=== PATIENT | male | born 1980 | race Caucasian/White ===

== ENCOUNTER 2020-02-10 19:12 | Emergency (ER) | payer MEDICAID, SELFPAY ==
[2020-02-10 19:25] VITALS: BP 119/66; PULSE 88; RESP 16; TEMP 37.6; O2SAT 98; BMI 31.3
--- NOTE | 2020-02-10 19:32 | ED.CHESTPAIN ---
HPI - Chest Pain General Chief Complaint: General Medical Stated Complaint: CHEST PAIN Time Seen by Provider: 02/10/20 19:29 Source: patient Mode of arrival: ambulatory Limitations: no limitations History of Present Illness HPI narrative: Patient no significant past medical history smokes pot noticed pain in the right leg for some time without significant swelling, also for last few days been coughing and today after coughing noticed pain on the right side , cough is mostly dry had mucopurulent phlegm today with blood streaks no fever no shortness of breath no exposure to COVID increase pain in the right lung when he takes a deep breath no history of blood clots in the past patient was seated on toilet seat for hours when he smokes pot no recent travel MD complaint: chest discomfort Prior episodes: No Onset: during rest Quality: sharp Relieving factors: nothing Exacerbating factors: inspiration Related Data Previous Rx's Medication Instructions Recorded apixaban [Eliquis DVT-PE Treat 30D 5 mg PO PER PKG DIR #74 ea 02/10/20 Start] codeine-guaifenesin 10 ml PO Q4-6H PRN #237 ml 02/10/20 Allergies Allergy/AdvReac Type Severity Reaction Status Date / Time No Known Allergies Allergy Verified 02/10/20 19:32 Review of Systems Review of Systems: REVIEW OF SYSTEMS: Pertinent positives and negatives are stated above in the history. GEN: no fevers, chills, fatigue HEENT: no nasal congestion, sore throat, ear pain NEURO: no headache, dizziness, focal weakness PULM: no cough, shortness of breath CV: no , palpitations, LE edema ABD: no abdominal pain, nausea, vomiting, diarrhea : no dysuria, urgency, frequency SKIN: no rash ROS otherwise negative x 10 PMFSH Past Medical History Medical History No active medical problems Social History Social History Alcohol intake: never Smoking Status: Never smoker Smoked in Last 30 Days: No Use of substances other than those prescribed or required for medical reasons: Yes Substance Use Type: Marijuana Substance Use Frequency: Chronic Longstanding Last Used Substance: Just Prior to Admission Any prior treatment program specific to substance use: No Advance Directives: No Advance Directives Information Provided: Yes Physical Exam Vital Signs: Vital Signs: Last Vital Signs Temp 99.4 F 02/10/20 20:00 Pulse 73 02/10/20 20:00 Resp 18 02/10/20 20:00 BP 132/69 02/10/20 20:00 Pulse Ox 97 02/10/20 21:50 Body Mass Index 31.3 Appearance: Alert. Oriented X3. No acute distress. Eyes: Pupils equal, round and reactive to light. ENT: Pharynx normal. Neck: Normal inspection. Neck supple. CVS: Normal heart rate and rhythm. Pulses normal. Respiratory: No respiratory distress. Breath sounds normal. Abdomen: Soft and nontender. Skin: Skin warm and dry. Normal skin color. Normal skin turgor. Extremities: No lower extremity edema. Good range of movement , superficial tenderness right calf area Shanti sign is slightly positive on right dorsiflexion Neuro: Oriented X 3. No motor deficit. No sensory deficit. MDM - Chest Pain MDM Narrative Medical decision making narrative: Patient with right calf pain Doppler showed right gastrocnemius vein thrombosis also CT chest done which showed right-sided pulmonary emboli without any strain or saddle emboli etiology is not clear but likely patient sit on the toilet seat and chair for long hours playing video games on cell phone likely the cause for blood clot in the right leg. Patient denied usage of any cocaine. Patient denies any family history of blood clots. Patient saturating 97% on ambulation at room air will treat him with Delmi as outpatient for PE and DVT treatment advised to follow-up with chemical treatment operator Medical Records Data Attestation: I reviewed the patient's medical records. Lab Data Attestation: I reviewed the patient's lab results. Result diagrams: 02/10/20 19:45 02/10/20 19:45 Labs: Lab Results 02/10/20 02/10/20 02/10/20 Range/Units 19:45 19:45 19:45 WBC 10.3 (4.8-10.8) X10*3/uL RBC 4.49 L (4.60-5.80) X10*6/uL Hgb 13.1 L (14.0-18.0) g/dl Hct 39.1 L (42-52) % MCV 87.1 (80-98) fL MCH 29.2 (27.0-33.0) pg MCHC 33.5 (31.0-36.0) g/dl RDW 12.8 (11.0-16.0) % Plt Count 260 (160-400) X10*3/uL MPV 8.8 L (9.4-12.4) fL Immature Gran % (Auto) 0.3 (0.0-0.4) % Neut % (Auto) 65.1 (45-73) % Lymph % (Auto) 25.0 (20-40) % [place] % (Auto) 7.1 (2-11) % Eos % (Auto) 2.1 (0-4) % Baso % (Auto) 0.4 (0-2) % Lymph # (Auto) 2.6 (1.2-4.9) X10*3/uL [place] # (Auto) 0.7 (0.1-1.2) X10*3/uL Eos # (Auto) 0.2 (0.0-0.4) X10*3/uL Baso # (Auto) 0.0 (0.0-0.2) X10*3/uL Abs Immat Gran (auto) 0.03 (0.00-0.03) X10*3/uL Absolute Neuts (auto) 6.7 (2.0-8.3) X10*3/uL Absolute Nucleated RBC 0.000 (0.0-0.012) X10*3/uL Nucleated RBC % (auto) 0.0 (0.0-0.2) /100WBC PT 11.9 (10.8-13.0) SEC INR 1.0 (0.9-1.1) APTT 31.6 (24.1-38.0) SEC D-Dimer 1791 NG/ML Hold Blue Top Sodium 139 (135-145) mmol/L Potassium 4.4 (3.3-5.1) mmol/l Chloride 103 (96-108) mmol/L Carbon Dioxide 26 (22-29) mmol/L Anion Gap 14 (12-20) BUN 15 (9-16) mg/dL Creatinine 0.93 (0.5-1.4) mg/dL Estim Creat Clear Calc 116.8 Estimated GFR > 60 Random Glucose 99 (60-115) mg/dL Calcium 8.4 (8.4-10.2) mg/dL /15/20 Range/Units 19:45 WBC (4.8-10.8) X10*3/uL RBC (4.60-5.80) X10*6/uL Hgb (14.0-18.0) g/dl Hct (42-52) % MCV (80-98) fL MCH (27.0-33.0) pg MCHC (31.0-36.0) g/dl RDW (11.0-16.0) % Plt Count (160-400) X10*3/uL MPV (9.4-12.4) fL Immature Gran % (Auto) (0.0-0.4) % Neut % (Auto) (45-73) % Lymph % (Auto) (20-40) % [place] % (Auto) (2-11) % Eos % (Auto) (0-4) % Baso % (Auto) (0-2) % Lymph # (Auto) (1.2-4.9) X10*3/uL [place] # (Auto) (0.1-1.2) X10*3/uL Eos # (Auto) (0.0-0.4) X10*3/uL Baso # (Auto) (0.0-0.2) X10*3/uL Abs Immat Gran (auto) (0.00-0.03) X10*3/uL Absolute Neuts (auto) (2.0-8.3) X10*3/uL Absolute Nucleated RBC (0.0-0.012) X10*3/uL Nucleated RBC % (auto) (0.0-0.2) /100WBC PT (10.8-13.0) SEC INR (0.9-1.1) APTT (24.1-38.0) SEC D-Dimer NG/ML Hold Blue Top SEE NOTE Sodium (135-145) mmol/L Potassium (3.3-5.1) mmol/l Chloride (96-108) mmol/L Carbon Dioxide (22-29) mmol/L Anion Gap (12-20) BUN (9-16) mg/dL Creatinine (0.5-1.4) mg/dL Estim Creat Clear Calc Estimated GFR Random Glucose (60-115) mg/dL Calcium (8.4-10.2) mg/dL ECG Data ECG #1: Attestation: I personally reviewed and interpreted this ECG as follows: Interpretation: Normal sinus rhythm heart rate 67 normal intervals normal axis impression normal EKG no acute ischemia Discharge Plan Discharge Clinical Impression: Pulmonary emboli Qualifiers: Pulmonary embolism type: multiple subsegmental (without acute cor pulmonale) Qualified Code(s): I26.94 - Multiple subsegmental pulmonary emboli without acute cor pulmonale DVT of lower limb, acute Qualifiers: Affected thrombotic vein of extremity: calf muscle vein Laterality: right Qualified Code(s): I82.461 - Acute embolism and thrombosis of right calf muscular vein Patient Disposition: Home, Self-Care Instructions: Deep Vein Thrombosis (ED) Additional Instructions: Rest at home. Take medication as prescribed. Follow-up with chemical treatment operator. Report to the ER if increased shortness of breath or pain Prescriptions: New Eliquis DVT-PE Treat 30D Start 5 mg (74 tabs) tablets,dose pack 5 mg PO PER PKG DIR Qty: 74 RF: 0 codeine-guaifenesin 10-100 mg/5 mL liquid 10 ml PO Q4-6H PRN (Reason: cough) Qty: 237 RF: 0 Referrals: Leonard Tamez MD [Physician] - 1 week Interventions: ED Discharge Assessment Last Done: 02/10/20 21:59 Discharge Date/Time: 02/10/20 21:59
--- NOTE | 2020-02-10 19:33 | XR_ITS ---
EXAMINATION: PORTABLE CHEST 1 VIEW CLINICAL INFORMATION: r sided pain . COMPARISON: 08/05/2007. TECHNIQUE: Portable frontal view of the chest was obtained. FINDINGS: The lungs are well expanded. No focal infiltrate, effusion, edema, or pneumothorax. Cardiac and mediastinal silhouettes are within normal limits for technique. No acute bony abnormality seen. Chronic healed mid left clavicular fracture again noted XR/XR chest 1V IMPRESSION: No evidence of acute disease.
--- NOTE | 2020-02-10 19:33 | US_ITS ---
EXAMINATION: US VENOUS ULTRASOUND WITH DOPPLER LOWER EXTREMITY, RIGHT CLINICAL INFORMATION: Calf pain COMPARISON: None TECHNIQUE: Ultrasound of the deep veins is performed from the hip to the calf with compression sonography and color and pulse Doppler assessment. Spectral analysis with color-flow imaging is performed. FINDINGS: There is normal venous compression and respiratory variation and augmented flow. The visualized common femoral vein, superficial femoral vein, profunda femoral vein, popliteal vein, and the trifurcation region shows no evidence of deep venous thrombosis. Noncompressible thrombus is seen in both gastrocnemius veins, which are considered deep veins. There is no significant popliteal fossa cyst. US/US venous duplex LE RT IMPRESSION: DVT with noncompressible thrombus in the gastrocnemius veins. This critical result was discussed with Dr. Arambula at 8:35 PM and it was ascertained that the content and urgency of the report was understood at the time of direct communication.
[2020-02-10 19:51] LABS: Basophils Percent Auto 0.4 % (0-2); Eosinophils Absolute Auto 0.2 X10*3/uL (0.0-0.4); Eosinophils Percent Auto 2.1 % (0-4); Hematocrit 39.1 % (42-52); Hemoglobin 13.1 g/dl (14.0-18.0); Imm Gran Abs Auto 0.03 X10*3/uL (0.00-0.03); Imm Gran Pct Auto 0.3 % (0.0-0.4); Lymphocytes Absolute Auto 2.6 X10*3/uL (1.2-4.9); MANUAL DIFF FLAG NO; Mean Corpuscular HGB Conc 33.5 g/dl (31.0-36.0); Mean Corpuscular Hemoglobin 29.2 pg (27.0-33.0); Mean Corpuscular Volume 87.1 fL (80-98); Mean Platelet Volume 8.8 fL (9.4-12.4); Monocytes Absolute Auto 0.7 X10*3/uL (0.1-1.2); Monocytes Percent Auto 7.1 % (2-11); Neutrophils Absolute Auto 6.7 X10*3/uL (2.0-8.3); Neutrophils Percent Auto 65.1 % (45-73); Platelet Count 260 X10*3/uL (160-400); Red Blood Count 4.49 X10*6/uL (4.60-5.80); Red Cell Distribution Width 12.8 % (11.0-16.0); White Blood Count 10.3 X10*3/uL (4.8-10.8)
[2020-02-10 20:00] VITALS: BP 132/69; PULSE 73; RESP 18; TEMP 37.4; O2SAT 95
[2020-02-10 20:16] LABS: Anion Gap 14 (12-20); Blood Urea Nitrogen 15 mg/dL (9-16); Calcium 8.4 mg/dL (8.4-10.2); Carbon Dioxide 26 mmol/L (22-29); Chloride 103 mmol/L (96-108); Creatinine Clr Calc Pharmacy 116.8; Estimated Glomerular Filt Rate > 60; Glucose Random 99 mg/dL (60-115); Potassium 4.4 mmol/l (3.3-5.1); Sodium 139 mmol/L (135-145)
[2020-02-10 20:27] LABS: D Dimer 1791 NG/ML
--- NOTE | 2020-02-10 20:35 | CT_ITS ---
EXAMINATION: CT ANGIOGRAM OF THE CHEST WITH AND WITHOUT CONTRAST (CT PULMONARY ANGIOGRAM FOR PE) CLINICAL INFORMATION: Reason for Exam r sided pain ?PE , DVT + R leg COMPARISON: None TECHNIQUE: Prior to contrast administration, noncontrast localization images were obtained. Subsequently, multidetector volumetric imaging was performed from the thoracic inlet to below the diaphragms following the administration of 80 mL Omnipaque 350 intravenous contrast. No contrast reaction reported Sagittal, coronal, and MIP oblique sagittal reformatted images were obtained on the CT workstation, uploaded to PACS, and reviewed. This CT examination was performed using dose optimization techniques as appropriate, variously including the following: *Automated exposure control *Adjustment of mA and/or kV according to patient size (this includes techniques or standardized protocols for targeted exams where dose is matched to indication/reason for exam; i.e. extremities or head) *Use of iterative reconstruction technique Total exam dose-length product 370 mGy-cm FINDINGS: QUALITY OF STUDY/CONTRAST BOLUS: Satisfactory. PULMONARY ARTERIES: Acute pulmonary emboli are present predominantly in the right lower lobe as well as right middle lobe. No definite emboli are seen on the left although the quality of the bolus is less than optimal. THORACIC AORTA: No aneurysm or dissection. LUNG: No focal consolidation, nodules or masses. Bibasilar atelectasis is present PLEURA: No pleural effusion or pneumothorax. MEDIASTINUM: Normal heart size. No pericardial effusion. No hilar or mediastinal lymphadenopathy. No evidence of septal bowing or right heart strain. CHEST WALL/AXILLA: No axillary or internal mammary lymphadenopathy. OSSEOUS STRUCTURES: No acute or suspicious osseous abnormality. UPPER ABDOMEN: Unremarkable. No significant reflux of contrast into the hepatic veins to suggest elevated right heart pressures. CT/CT angio chest PE protocol IMPRESSION: Acute pulmonary emboli involving predominantly the right lower lobe and right middle lobe VTE: positive This critical result was discussed with Dr. Sabillon at 9:10 PM on the day of the exam and it was ascertained that the content and urgency of the report was understood at the time of direct communication.
[2020-02-10] MEDS: iohexoL 350 MG/ML 100 ML INFUS..BTL IV (20:51)
[2020-02-10 21:09] LABS: Prothrombin Time 11.9 SEC (10.8-13.0)
[2020-02-10] MEDS: Ketorolac Tromethamine 30 MG/ML VIAL IVPUSH (21:11)
[2020-02-10] MEDS: Apixaban 5 MG TABLET 10 MG PO (21:11)
[2020-02-10 21:12] LABS: Partial Thromboplastin Time 31.6 SEC (24.1-38.0)
--- NOTE | 2020-02-10 21:42 | ECG_ITS ---
Test Reason : DVT Blood Pressure : / mmHG Vent. Rate : 067 BPM Atrial Rate : 067 BPM P-R Int : 150 ms QRS Dur : 088 ms QT Int : 396 ms P-R-T Axes : 065 052 040 degrees QTc Int : 418 ms Normal sinus rhythm Normal ECG When compared with ECG of 16-FEB-2015 09:27, QT has shortened Referred By: Michael Sabillon Electronically Signed By:Anthony Plasencia
[2020-02-10 21:50] VITALS: O2SAT 97
== END 2020-02-10 21:59 | disposition home or self-care (01) ==
PROVIDERS: Emergency Provider Internal Medicine
DX: I26.94 Multiple subsegmental thrombotic pulmonary emboli without acute cor pulmonale (principal); I82.461 Acute embolism and thrombosis of right calf muscular vein; R60.0 Localized edema; M79.661 Pain in right lower leg; R07.9 Chest pain, unspecified; R05 Cough; F12.90 Cannabis use, unspecified, uncomplicated
CPT/HCPCS: 36415; 71045; 71275; 80048; 85025; 85379; 85610; 85730; 93005; 93971; 96374; 99284; J1885; Q9967

== ENCOUNTER 2020-02-11 11:16 | Inpatient (IN) | payer MEDICAID, SELFPAY ==
--- NOTE | 2020-02-11 11:33 | ECG_ITS ---
Test Reason : CHEST PAIN Blood Pressure : / mmHG Vent. Rate : 084 BPM Atrial Rate : 084 BPM P-R Int : 142 ms QRS Dur : 086 ms QT Int : 358 ms P-R-T Axes : 065 032 030 degrees QTc Int : 423 ms Normal sinus rhythm Normal ECG When compared with ECG of 10-FEB-2020 21:47, No significant change was found Referred By: Barbara Muñoz Electronically Signed By:Anthony Plasencia
--- NOTE | 2020-02-11 11:33 | ED.CHESTPAIN ---
HPI - Chest Pain General Chief Complaint: General Medical Stated Complaint: chest pain Time Seen by Provider: 02/11/20 11:32 Source: patient and old records reviewed Mode of arrival: ambulatory Limitations: no limitations History of Present Illness MD complaint: chest pain and other (dyspnea, RLE pain) Onset (ago): day(s) (6 days ago but started with CP yesterday AM) Timing of current episode: constant Onset: during rest and during exertion Pain location: right chest Pain radiation: none Severity: moderate Quality: sharp Relieving factors: nothing Exacerbating factors: inspiration Context: other (dx with RLE DVT and RML and RLL PE started on eliquis went home and still has cp/shortness of breath and mild hemoptysis) Associated symptoms: dyspnea and cough Treatment prior to arrival: other (eliquis last night in ED) Related Data Previous Rx's Medication Instructions Recorded apixaban [Eliquis DVT-PE Treat 30D 5 mg PO PER PKG DIR #74 ea 02/10/20 Start] codeine-guaifenesin 10 ml PO Q4-6H PRN #237 ml 02/10/20 Allergies Allergy/AdvReac Type Severity Reaction Status Date / Time No Known Allergies Allergy Verified 02/10/20 19:32 Review of Systems Review of Systems: Constitutional : No Fever, No Chills ENT/Mouth : No sore throat, No Rhinorrhea, No Swallowing Difficulty Eyes: No Eye Pain, No Swelling, No Redness Cardiovascular : pos Chest Pain, positive SOB, No Orthopnea, positive Edema Respiratory : pos Cough, No Sputum, No Wheezing, positive dyspnea, pos hemoptysis Gastrointestinal : No Nausea, No Vomiting, No Diarrhea, No abdominal Pain, No Hematochezia, No Melena Genitourinary : No Dysuria, No Urinary Frequency, No Hematuria Musculoskeletal : No joint pain, No Myalgias Skin : No Skin Lesions, No rash Neuro : No Weakness, No Numbness, No Dizziness, No Headache Psych : No Anxiety/Panic, No Depression Heme/Lymph: No Bruising, No Lymphadenopathy Endocrine : No Polyuria, No Polydipsia All other systems reviewed and are negative [facility] Past Medical History Attestation statement: The following information was validated with the patient. Medical History (Updated 02/11/20 @ 11:53 by Barbara Muñoz DO) No active medical problems Pulmonary embolus Social History Social History Alcohol intake: never Smoking Status: Never smoker Use of substances other than those prescribed or required for medical reasons: No Substance Use Type: Marijuana Advance Directives: No Advance Directives Information Provided: Yes Physical Exam Vital Signs: Vital Signs: Last Vital Signs Temp 98.9 F 02/11/20 11:37 Pulse 84 02/11/20 11:37 Resp 18 02/11/20 12:06 BP 140/75 H 02/11/20 11:37 Pulse Ox 96 02/11/20 11:37 Body Mass Index 32.7 Appearance: Alert. Oriented X3. No acute distress. Eyes: Pupils equal, round and reactive to light. ENT: Pharynx normal. Neck: Normal inspection. Neck supple. CVS: Normal heart rate and rhythm. Pulses normal. Respiratory: No respiratory distress. Breath sounds normal. splinting Abdomen: Soft and nontender. Skin: Skin warm and diaphoretic. pale skin color. Normal skin turgor. Extremities: No lower extremity edema. R calf ttp Neuro: Oriented X 3. No motor deficit. No sensory deficit. Course Course Course Narrative: will start on heparin gtt given hemoptysis MDM - Chest Pain MDM Narrative Medical decision making narrative: 39 yo male dx with DVT and PE x2 RML and RLL yesterday comes back as he is still having pain, shortness of breath, unable to get eliquis but also concerned because when he coughs he reports streaks of blood and has had some clots, at thsi time will obtain labs, EKG, IV dilaudid for pain, will admit for observation Lab Data Result diagrams: 02/11/20 12:02 02/11/20 12:02 ECG Data ECG #1: Attestation: I personally reviewed and interpreted this ECG as follows: ECG interpretation date: 02/11/20 ECG interpretation time: 11:54 Interpretation: Rate: 84 Rhythm: NSR [place]: normal Normal P waves. Normal [place]. Normal QRS complex. ST T wave : normal qTC: normal prior studies: no acute ischemia The study has been interpreted contemporaneously by me. . Discharge Plan Discharge Clinical Impression: Pulmonary emboli Qualifiers: Pulmonary embolism type: unspecified Chronicity: acute Acute cor pulmonale presence: with acute cor pulmonale Qualified Code(s): I26.09 - Other pulmonary embolism with acute cor pulmonale Patient Disposition: Admitted As Inpatient
[2020-02-11 11:37] VITALS: BP 140/75; PULSE 84; RESP 18; TEMP 37.2; O2SAT 96; BMI 32.7
[2020-02-11 12:06] VITALS: RESP 18
[2020-02-11] MEDS: HYDROmorphone HCl 0.5 MG/0.5 ML SYRINGE IVPUSH (12:06)
[2020-02-11 12:08] LABS: MANUAL DIFF FLAG NO
[2020-02-11 12:10] LABS: Basophils Absolute Auto 0.1 X10*3/uL (0.0-0.2); Basophils Percent Auto 0.4 % (0-2); Eosinophils Absolute Auto 0.1 X10*3/uL (0.0-0.4); Eosinophils Percent Auto 1.1 % (0-4); Hematocrit 39.4 % (42-52); Hemoglobin 13.2 g/dl (14.0-18.0); Imm Gran Abs Auto 0.04 X10*3/uL (0.00-0.03); Imm Gran Pct Auto 0.3 % (0.0-0.4); Lymphocytes Percent Auto 16.8 % (20-40); Mean Corpuscular HGB Conc 33.5 g/dl (31.0-36.0); Mean Corpuscular Hemoglobin 29.1 pg (27.0-33.0); Mean Corpuscular Volume 86.8 fL (80-98); Mean Platelet Volume 8.6 fL (9.4-12.4); Monocytes Absolute Auto 0.7 X10*3/uL (0.1-1.2); Monocytes Percent Auto 6.1 % (2-11); Neutrophils Absolute Auto 8.8 X10*3/uL (2.0-8.3); Neutrophils Percent Auto 75.3 % (45-73); Platelet Count 296 X10*3/uL (160-400); Red Blood Count 4.54 X10*6/uL (4.60-5.80); Red Cell Distribution Width 12.9 % (11.0-16.0); White Blood Count 11.7 X10*3/uL (4.8-10.8)
[2020-02-11 12:13] LABS: INTERNATIONAL NORM RATIO 1.1 (0.9-1.1); Prothrombin Time 12.7 SEC (10.8-13.0)
[2020-02-11 12:16] LABS: Partial Thromboplastin Time 37.7 SEC (24.1-38.0)
[2020-02-11] MEDS: Heparin Sodium,Porcine/1/2NS 25,000 UNIT/250 ML IV.SOLN 9.99 UNIT IVCONT (12:24)
[2020-02-11] MEDS: Heparin Sodium,Porcine 5,000 UNIT/ML VIAL 3792.04 UNIT IVPUSH ×2 (12:25→20:28)
--- NOTE | 2020-02-11 12:27 | P.HPHOSP_ITS ---
History of Present Illness Date of Service: 02/11/20 Chief Complaint: Hemoptysis This is a 39-year-old male who was seen in the emergency department 02/10/2020 for leg pain and chest pain found to have DVT/PE who presents to the emergency department with hemoptysis. Patient reports 5 days of right lower extremity calf pain. Yesterday he began experiencing pleuritic chest pain and had multiple episodes of hemoptysis. He was diagnosed with right gastrocnemius vein DVT as well as acute PE of the right lower lobe and right middle lobe. He was saturating 97% on room air with ambulation. CTA showed no evidence of heart strain. Therefore he was discharged home with Eliquis. He received a dose of Eliquis in the emergency department prior to leaving. Due to ongoing hemoptysis and pleuritic chest pain he decided to return to the emergency department today. CBC was stable. Vital signs were stable. He was started on heparin the decision was made to admit him for further management. He denies any recent travel, trauma, surgery. He thinks his paternal grandfather and possibly his uncle may have had a DVT but he is unsure and doesn't know any details. Review of Systems Review of Systems: Yes all other systems are reviewed and are negative Constitutional: Constitutional: Denies chills and Denies fever(s) Cardiovascular: Cardiovascular: Reports chest pain, Denies palpitations, Denies dyspnea and Denies dyspnea on exertion Respiratory: Respiratory: Denies dyspnea and Denies dyspnea on exertion Gastrointestinal: Gastrointestinal: Denies abdominal pain Endocrine: Endocrine: Denies palpitations ON LICENSE OF [facility] Medical History (Updated 02/11/20 @ 12:33 by JILLIAN Mora) No active medical problems Opiate dependence Pulmonary embolus Functional capacity: independent ambulation Pertinent family history: Possible VTE in paternal grandfather, uncle Surgical History (Updated 02/11/20 @ 12:34 by JILLIAN Mora) History of mandibular surgery Social History (Updated 02/11/20 @ 12:34 by JILLIAN Mora) Alcohol intake: never Smoking Status: Never smoker Use of substances other than those prescribed or required for medical reasons: Yes Substance Use Type: Marijuana Advance Directives: No Advance Directives Information Provided: Yes Meds Allergies Allergy/AdvReac Type Severity Reaction Status Date / Time No Known Allergies Allergy Verified 02/10/20 19:32 Home Medications Medication Instructions Recorded Confirmed Type methadone [Methadone Intensol] 67 mg PO DAILY 02/11/20 02/11/20 History Physical Exam Vital Signs and Narrative: Vital Signs: Last Vital Signs Temp 98.9 F 02/11/20 11:37 Pulse 84 02/11/20 11:37 Resp 18 02/11/20 12:06 BP 140/75 H 02/11/20 11:37 Pulse Ox 96 02/11/20 11:37 Body Mass Index 32.7 Const: Nutritional Appearance: well nourished Orientation/consciousness: patient oriented x3 HENMT: Head: Yes normocephalic and Yes atraumatic Eyes: Sclerae: sclerae normal Chest: Chest palpation & inspection: normal inspection of the chest Resp: Effort & Inspection: normal respiratory effort and no respiratory di stress Auscultation: clear to auscultation bilaterally Cardio: Rate: regular rate Rhythm: regular rhythm GI: Palpation (GI): Soft to palpation and nontender Skin: General skin exam: no rashes or lesions noted Neuro: General: patient oriented x3 Cranial nerves: Yes CN's II-XII intact bilaterally and Yes Bilaterally intact EOM present Extrem: General: Yes normal to inspection Results Labs CBC and Chem 7: 02/11/20 12:02 02/11/20 12:02 Labs: Laboratory Results - last 24 hr 02/11/20 02/11/20 12:02 12:02 MCV 86.8 MCH 29.1 MCHC 33.5 RDW 12.9 Plt Count 296 MPV 8.6 L Immature Gran % (Auto) 0.3 Neut % (Auto) 75.3 H Lymph % (Auto) 16.8 L [place] % (Auto) 6.1 Eos % (Auto) 1.1 Baso % (Auto) 0.4 Lymph # (Auto) 2.0 [place] # (Auto) 0.7 Eos # (Auto) 0.1 Baso # (Auto) 0.1 Abs Immat Gran (auto) 0.04 H Absolute Neuts (auto) 8.8 H Absolute Nucleated RBC 0.000 Nucleated RBC % (auto) 0.0 PT 12.7 INR 1.1 APTT 37.7 Assessment and Plan (1) Pulmonary emboli: Qualifiers: Acute cor pulmonale presence: with acute cor pulmonale Chronicity: acute Pulmonary embolism type: unspecified Qualified Code(s): I26.09 - Other pulmonary embolism with acute cor pulmonale Status: Acute This is a 39-year-old male with history of opiate dependence on methadone diagnosed with DVT/PE on 02/10/2020 presenting with hemoptysis RLE DVT/PE (RLL, RML) with hemoptysis Vital signs stable. PESI mortality score 47, very low risk CTA shows no evidence of heart strain. Seems unprovoked Anticoagulation with IV heparin given active hemoptysis CBC stable Hematology consult Follow CBC History of opiate abuse Continue home dose of methadone when confirmed DVT prophylaxis-heparin Code status-full code This case was discussed with Dr. Pearl
[2020-02-11 12:42] LABS: Anion Gap 13 (12-20); Blood Urea Nitrogen 18 mg/dL (9-16); Calcium 8.9 mg/dL (8.4-10.2); Carbon Dioxide 25 mmol/L (22-29); Chloride 104 mmol/L (96-108); Creatinine Clr Calc Pharmacy 102.7; Estimated Glomerular Filt Rate > 60; Glucose Random 112 mg/dL (60-115); Potassium 4.3 mmol/l (3.3-5.1); Sodium 138 mmol/L (135-145)
[2020-02-11 12:44] LABS: COVID-19 Test Negative (Negative)
[2020-02-11 12:48] LABS: B Type Natriuretic Peptide < 10 pg/mL (<100); Troponin-I High Sensitivity < 3.5 ng/L (<3.5-35.0)
--- NOTE | 2020-02-11 14:46 | PM.HEMONCCN ---
Subjective - Subjective Chief complaint: Chest pain, hemoptysis Consult date: 02/11/20 Primary Care Provider: [facility] HPI - Consult Narrative Reason for consult: Pulmonary emboli Narrative: Raciel Boateng JR is a 39 year old male who is admitted with diagnosis of right-sided pulmonary emboli. He developed right calf pain about a week ago. He developed chest pain, few episodes of coughing up blood which brought him into the emergency room. Workup in the emergency department revealed DVT in the right gastrocnemius vein and acute pulmonary emboli in the right lower and middle lobes. He was sent home on Eliquis but he returned today because of few more episodes of hemoptysis. He has been started on IV unfractionated heparin and admitted for further management. No prior history of thromboembolism, he thinks his paternal grandfather may have had a blood clot but he is not sure of the details. He smokes marijuana, he quit smoking cigarettes 2 years ago. He denies any trauma to the right lower extremity or travel history. However he says he sits on the toilet seat which is a rather cramped space for very long periods of time playing video games on his phone. Review of Systems - Constitutional Reports no additional constitutional complaints - Respiratory Reports no additional respiratory complaints - Gastrointestinal Denies abdominal pain, Denies black, tarry stools, Denies change in bowel habits, Denies heartburn - Musculoskeletal Reports as per HPI, Denies joint pain, Denies joint swelling - Hematologic/Lymphatic Denies easy bleeding, Denies easy bruising, Denies enlarged lymph nodes Oncology Screenings - ECOG Performance Status ECOG Performance Status: 1 [facility] Medical History: Medical History (Last Updated 02/11/20 @ 12:33 by JILLIAN Mora) No active medical problems Opiate dependence Pulmonary embolus Functional capacity: independent ambulation Surgical History: Surgical History (Last Updated 02/11/20 @ 12:34 by JILLIAN Mora) History of mandibular surgery Smoking status: Never smoker Home Medications and Allergies Current Medications: Current Medications Generic Name Dose Route Start Last Admin Trade Name Freq PRN Reason Stop Dose Admin Acetaminophen 650 mg 02/11/20 12:27 Acetaminophen 325 Mg Tablet PO Q6H PRN Pain, Mild (Pain Scale 1-3) Docusate Sodium 100 mg 02/11/20 12:27 Docusate Sodium 100 Mg Capsule PO DAILY PRN Constipation Heparin Sodium (Porcine) 3,792.04 unit 02/11/20 12:05 02/11/20 12:25 Heparin Sodium,Porcine 5,000 Unit/Ml Vial 40 unit/kg (3792.04 unit) 3,792.04 unit IVPUSH Administration BOLUS PRN HEPARINPRO Heparin Sodium/Sodium Chloride 25,000 unit in 250 mls @ 0 mls/hr 02/11/20 12:15 02/11/20 12:24 IVCONT 10.54 units/kg/hr .Q0M BREANNA 9.99 mls/hr Administration Protocol Per Protocol Methadone HCl 67 mg 02/12/20 09:00 Methadone Hcl 1 Mg/0.1 Ml Oral.Conc PO DAILY FOR[facility]LY [facility], [facility]–1983 Pharmacy Consult 1 each 02/11/20 11:34 Consult Rx Perform Med Rec MISCELLANE ONCE PRN Consult order Home Medications Medication Instructions Recorded Confirmed Type methadone [Methadone Intensol] 67 mg PO DAILY 02/11/20 02/11/20 History Allergies Allergy/AdvReac Type Severity Reaction Status Date / Time No Known Allergies Allergy Verified 02/10/20 19:32 Physical Exam Vital signs: Vital Signs Temp 98.9 F 02/11/20 11:37 Pulse 84 02/11/20 11:37 Resp 18 02/11/20 12:06 BP 140/75 H 02/11/20 11:37 Pulse Ox 96 02/11/20 11:37 Intake & Output 02/10/20 02/11/20 02/11/20 18:59 06:59 18:59 Output Total 50 / 50 Balance -50 / -50 Urine Output (Average ml/kg/hr) 0.04 Output: Output, Urine Amount 50 / 50 Other: Weight 94.801 kg Weight 94.801 kg - Constitutional Present: no acute distress - Routine HEENT Exam Head: Present: normal inspection Eye: Present: EOMI - Routine Neck Exam Absent: lymphadenopathy - Routine Respiratory Exam Present: CTAB - Routine Cardiovascular Exam Cardiovascular: Present: RRR, S1, S2 - Routine Abdominal Exam Present: soft. Absent: tenderness - Detailed Lower Extremity Exam Hip: Right tenderness - Routine Skin Exam Present: intact. Absent: cyanosis, erythema Hem/Onc Consult Result - Labs CBC & Chem 7: 02/11/20 12:02 02/11/20 12:02 Labs: Short CBC 02/11/20 Range/Units 12:02 WBC 11.7 H (4.8-10.8) X10*3/uL Hgb 13.2 L (14.0-18.0) g/dl Hct 39.4 L (42-52) % Plt Count 296 (160-400) X10*3/uL BMP 02/11/20 12:02 Sodium 138 Potassium 4.3 Chloride 104 Carbon Dioxide 25 BUN 18 H Creatinine 1.08 Calcium 8.9 Assessment and Plan (1) Pulmonary emboli Status: Acute Qualifiers: Pulmonary embolism type: unspecified Chronicity: acute Acute cor pulmonale presence: with acute cor pulmonale Qualified Code(s): I26.09 - Other pulmonary embolism with acute cor pulmonale 1. This is a 39-year-old male admitted with spontaneous right lower extremity DVT and right middle/lower lobe pulmonary emboli. He presented with a few episodes of hemoptysis which prompted admission to the hospital. He is on unfractionated IV heparin. He appears to be doing well now without further episodes of hemoptysis since admission to the hospital a few hours back. He does have some right pleuritic chest pain and mild right lower extremity pain. His risk factors appear to be obesity/smoking and sedentary lifestyle. No acute triggering factors present. I have ordered thrombophilia workup, partial since he has an acute clot at this time. If he continues to do well on heparin, he can be switched to oral anticoagulants tomorrow and discharged home. He will require about 6 months of anticoagulation and longer depending on thrombophilia workup. He was advised about stopping marijuana and exercising more, weight loss was encouraged. I will follow-up with him as outpatient. I thank you for this consult.
[2020-02-11 15:18] VITALS: BP 140/68; PULSE 71; RESP 18; TEMP 37.2; O2SAT 96
--- NOTE | 2020-02-11 15:47 | P.EN_ITS ---
Event Note Date of Service: 02/11/20 Event Note: Patient seen and examined independently. I agree with HEIDI note as sessment and plan. Patient is a 39-year-old male with past medical history of IV drug use who presents to the hospital with complaints of hemoptysis. Found to have a DVT as well as PE. Reports that he usually spends about 3-4 hours daily in the toilet playing video games. Denies any family history except a paternal grandfather that had a PE CTA shows acute pulmonary emboli involving predominantly the right lower Lobe and right middle lobe. He currently has pleuritic pain with no hypoxia, no shortness of breath. Plan: Will consult Hematology for possible to evaluate causative agents Will start him on heparin given his hemoptysis Once hemoptysis resolves will start him on p.o. anticoagulation recommended by Hematology For full note please see H&P
[2020-02-11] MEDS: guaiFENesin 100 MG/5 ML LIQUID PO (16:34)
[2020-02-11] MEDS: 0.9 % Sodium Chloride Flush 3 ML SYRINGE IVFLUSH ×2 (16:35→23:57)
--- NOTE | 2020-02-11 17:40 | ECG_ITS ---
Test Reason : CHEST PAIN Blood Pressure : / mmHG Vent. Rate : 075 BPM Atrial Rate : 075 BPM P-R Int : 122 ms QRS Dur : 080 ms QT Int : 380 ms P-R-T Axes : 020 021 026 degrees QTc Int : 424 ms Normal sinus rhythm Normal ECG No previous ECGs available Referred By: Krystyna Grover Electronically Signed By:Anthony Plasencia
--- NOTE | 2020-02-11 17:49 | PC.NURSE ---
pt reports episode of chest pain worse with deep breath. EKG obtained, MD to bedside. Pt states pain improving
[2020-02-11 19:00] LABS: PTT Heparin Drip 52.8 SEC (53-77.9)
[2020-02-11] MEDS: oxyCODONE HCl Immed Release 5 MG TABLET PO (19:05)
[2020-02-11 19:31] VITALS: BP 127/75; PULSE 71; RESP 18; TEMP 37.6; O2SAT 95
--- NOTE | 2020-02-11 22:23 | PC.NURSE ---
Pt reports chest pain is better after medication, he has been resting quietly.
[2020-02-11 23:55] VITALS: BP 150/83; PULSE 68; RESP 19; TEMP 37.6; O2SAT 94
[2020-02-12] LABS: PTT Heparin Drip 127.4 SEC (53-77.9)
[2020-02-12] MEDS: oxyCODONE HCl Immed Release 5 MG TABLET PO ×2 (00:02→05:54)
[2020-02-12 03:09] VITALS: BP 137/63; PULSE 69; RESP 17; TEMP 37.2; O2SAT 94
[2020-02-12 07:40] VITALS: BP 156/80; PULSE 71; RESP 20; TEMP 37.1; O2SAT 95
[2020-02-12 09:02] LABS: Hematocrit 40.2 % (42-52); Hemoglobin 13.6 g/dl (14.0-18.0); Mean Corpuscular HGB Conc 33.8 g/dl (31.0-36.0); Mean Corpuscular Hemoglobin 29.2 pg (27.0-33.0); Mean Corpuscular Volume 86.5 fL (80-98); Platelet Count 301 X10*3/uL (160-400); Red Blood Count 4.65 X10*6/uL (4.60-5.80); Red Cell Distribution Width 12.8 % (11.0-16.0); White Blood Count 12.1 X10*3/uL (4.8-10.8)
[2020-02-12 09:11] LABS: INTERNATIONAL NORM RATIO 1.2 (0.9-1.1); Prothrombin Time 14.3 SEC (10.8-13.0)
[2020-02-12 09:14] LABS: PTT Heparin Drip 43.3 SEC (53-77.9)
[2020-02-12 09:29] LABS: Anion Gap 16 (12-20); Blood Urea Nitrogen 13 mg/dL (9-16); Calcium 8.9 mg/dL (8.4-10.2); Carbon Dioxide 23 mmol/L (22-29); Chloride 102 mmol/L (96-108); Creatinine Clr Calc Pharmacy 115.6; Estimated Glomerular Filt Rate > 60; Glucose Random 114 mg/dL (60-115); Potassium 4.2 mmol/l (3.3-5.1); Sodium 137 mmol/L (135-145)
--- NOTE | 2020-02-12 09:40 | MHC.CM.PN ---
PT REPORTS HE LIVES IN AN APARTMENT WITH HIS S/O. PT REPORTS BEING FULLY INDEPENDENT AND NEEDING NO DME. PT REPORTS HE DOES NOT HAVE A PCP BUT DOES KNOW THE PROCESS OF OBTAINING ONE WITH HIS INSURANCE COMPANY. PT DOES NOT HAVE A HCP BUT WILL COMPLETE ONE TODAY. CURRENT DC PLAN IS HOME WITH NO SERVICES PT WILL SELF ARRANGE TRANSPORT
[2020-02-12 10:59] VITALS: BP 119/65; PULSE 74; RESP 18; TEMP 37.3; O2SAT 93
[2020-02-12] MEDS: Apixaban 5 MG TABLET 10 MG PO (11:01)
--- NOTE | 2020-02-12 12:36 | PM.DS ---
DS: Providers Provider Date of admission: 02/11/20 12:27 Primary care physician: [facility] Consults: 02/11/20 12:27 Consult to Hematology / Oncology Routine Consulting Provider: Glendy Monroy Reason for consultation: dvt/PE; hemoptysis Has provider been notified: No DS: Diagnosis Discharge Diagnosis (1) Pulmonary emboli: Status: Acute (2) Hemoptysis: Status: Acute (3) Opiate dependence: Status: Acute DS: Medications Discharge Medications Home Medications: Home Medications Medication Instructions Recorded Confirmed methadone [Methadone Intensol] 67 mg PO DAILY 02/11/20 02/11/20 Previous Rx's Medication Instructions Recorded codeine-guaifenesin 10 ml PO Q4-6H PRN #237 ml 02/10/20 apixaban [Eliquis] 5 mg PO BID #60 tab 02/12/20 DS: Summary Hospital Course Hospital Course: Patient was admitted for IV heparin drip for his pulmonary embolism. He was seen in consultation by Hematology who ordered hypercoagulable workup. 24 hours post heparin, his H&H remained stable and he no longer complained of hemoptysis. He will be transitioned to oral Eliquis 10 mg twice daily for 7 days followed by 5 mg twice daily thereafter. He will likely require anticoagulation for at least 6 months. He is to follow up with Hematology as an outpatient. Additionally -- patients pharmacy was called and his Eliquis starter pack was switched to regular as pharmacy stated that it may not be ready today due to weather. Time Spent with Patient Time attestation: Total time spent providing and/or coordinating discharge services: Physical Exam Vital Signs: Vital Signs: Last Vital Signs Temp 99.1 F 02/12/20 10:59 Pulse 74 02/12/20 10:59 Resp 18 02/12/20 10:59 BP 119/65 02/12/20 10:59 Pulse Ox 93 02/12/20 10:59 Body Mass Index 32.7 Const: Other: General - no acute distress, appears comfortable Cardiovascular - regular rate and rhythm, S1-S2 Lungs - normal respiratory effort, clear to auscultation bilaterally, no wheezing Abdomen - soft, nontender, no rebound or guarding Extremities - no edema bilaterally Neuro - awake and alert, no focal deficits DS: Data Data Completed and Pending Labs on day of discharge: Laboratory Last Values WBC 12.1 X10*3/uL (4.8-10.8) H 02/12/20 08:11 RBC 4.65 X10*6/uL (4.60-5.80) 02/12/20 08:11 Hgb 13.6 g/dl (14.0-18.0) L 02/12/20 08:11 Hct 40.2 % (42-52) L 02/12/20 08:11 MCV 86.5 fL (80-98) 02/12/20 08:11 MCH 29.2 pg (27.0-33.0) 02/12/20 08:11 MCHC 33.8 g/dl (31.0-36.0) 02/12/20 08:11 RDW 12.8 % (11.0-16.0) 02/12/20 08:11 Plt Count 301 X10*3/uL (160-400) 02/12/20 08:11 MPV 9.0 fL (9.4-12.4) L 02/12/20 08:11 Immature Gran % (Auto) 0.3 % (0.0-0.4) 02/11/20 12:02 Neut % (Auto) 75.3 % (45-73) H 02/11/20 12:02 Lymph % (Auto) 16.8 % (20-40) L 02/11/20 12:02 [place] % (Auto) 6.1 % (2-11) 02/11/20 12:02 Eos % (Auto) 1.1 % (0-4) 02/11/20 12:02 Baso % (Auto) 0.4 % (0-2) 02/11/20 12:02 Lymph # (Auto) 2.0 X10*3/uL (1.2-4.9) 02/11/20 12:02 [place] # (Auto) 0.7 X10*3/uL (0.1-1.2) 02/11/20 12:02 Eos # (Auto) 0.1 X10*3/uL (0.0-0.4) 02/11/20 12:02 Baso # (Auto) 0.1 X10*3/uL (0.0-0.2) 02/11/20 12:02 Abs Immat Gran (auto) 0.04 X10*3/uL (0.00-0.03) H 02/11/20 12:02 Absolute Neuts (auto) 8.8 X10*3/uL (2.0-8.3) H 02/11/20 12:02 Absolute Nucleated RBC 0.000 X10*3/uL (0.0-0.012) 02/12/20 08:11 Nucleated RBC % (auto) 0.0 /100WBC (0.0-0.2) 02/12/20 08:11 PT 14.3 SEC (10.8-13.0) H 02/12/20 08:11 INR 1.2 (0.9-1.1) H 02/12/20 08:11 APTT 37.7 SEC (24.1-38.0) 02/11/20 12:02 PTT (Heparin Protocol) 43.3 SEC (53-77.9) L D 02/12/20 08:11 Sodium 137 mmol/L (135-145) 02/12/20 08:11 Potassium 4.2 mmol/l (3.3-5.1) 02/12/20 08:11 Chloride 102 mmol/L (96-108) 02/12/20 08:11 Carbon Dioxide 23 mmol/L (22-29) 02/12/20 08:11 Anion Gap 16 (-20) 02/12/20 08:11 BUN 13 mg/dL (9-16) 02/12/20 08:11 Creatinine 0.96 mg/dL (0.5-1.4) 02/12/20 08:11 Estim Creat Clear Calc 115.6 02/12/20 08:11 Estimated GFR > 60 02/12/20 08:11 Random Glucose 114 mg/dL (60-115) 02/12/20 08:11 Calcium 8.9 mg/dL (8.4-10.2) 02/12/20 08:11 Troponin I High Sens < 3.5 ng/L (<3.5-35.0) 02/11/20 12:02 B-Natriuretic Peptide < 10 pg/mL (<100) 02/11/20 12:02 COVID-19 ([facility]) Negative (Negative) 02/11/20 12:02 COVID-19 Clin Com See Note 02/11/20 12:02 Discharge Plan Discharge Patient Disposition: Home, Self-Care Referrals: Glendy Monroy MD [Physician] - (call for appt) [place] [Primary Care Provider] - Discharge Medications: New Eliquis 5 mg tablet 5 mg PO BID Qty: 60 RF: 0 Continued codeine-guaifenesin 10-100 mg/5 mL liquid 10 ml PO Q4-6H PRN (Reason: cough) Qty: 237 RF: 0 methadone [Methadone Intensol] 10 mg/mL Concentrate 67 mg PO DAILY RF: 0 Discontinued Eliquis DVT-PE Treat 30D Start 5 mg (74 tabs) tablets,dose pack 5 mg PO PER PKG DIR Qty: 74 RF: 0 Discharge Orders: Discharge Order (Routine); Ordered 02/12/20 Ordered By: Emory Ulloa Diet: advance to usual diet Activity on Discharge: As tolerated Visit Report Forms: Patient Portal Discharge page Care Plan Goals: To stay healthy and out of the hospital. Health Concerns: Pulmonary Embolism Plan of Treatment: Take Eliquis 10mg twice daily for 7 days. After this take 5mg twice daily. Follow up with Dr. Monroy from Hematology.
--- NOTE | 2020-02-12 12:43 | MHC.CM.PN ---
Pt discharging home today with resumption of outpatient methadone treatment services at [facility] in [facility]. Pt will DC on Eliquis, 30 trial pack provided along with instructions on use and why it is necessary Pt reports his girlfriend is already downstairs waiting for him and will drive him home
--- NOTE | 2020-02-12 13:23 | PC.NURSE ---
Pt discotinued off of heparin today and started on po dose of eloquis. Plan for 10mg bid for 7 days and then decrease to 5mg bid. Pt verbally understood plan for this medication and s/s of abnormal bleeding reviewed with pt and he was educated to seek medical attention if he should have any abnormal bleeding.He understands plan with teach-back method. Multiple attempts made to reach pt's methadone clinic this morning. Pt given one time dose here of 70mg 02/12/20 at 11:05. Paperwork given with last dose and next avail dose given to him upon discharge. A note to the clinic was also provided with the direct phone number to the unit for a call back with any further questions.
[2020-02-13 10:42] LABS: Anti-Thrombin III Activity 105 % normal (80-135)
[2020-02-16 15:13] LABS: Hexagonal Phase Neutralization NEGATIVE (NEGATIVE); PTT (LAC) Screen 45 sec (< OR = 40)
== END 2020-02-12 13:14 | disposition home or self-care (01) | DRG 134 ==
LOC: HO.ED 11:53 → HO.IMC 12:46
PROVIDERS: Internal Medicine; Physician Assistant Medical; Admitting Provider Internal Medicine; Emergency Provider Emergency Medicine; Visit Provider Family Medicine
DX: I26.09 Other pulmonary embolism with acute cor pulmonale (principal); F11.20 Opioid dependence, uncomplicated; I82.461 Acute embolism and thrombosis of right calf muscular vein; Z20.828 Contact with and (suspected) exposure to other viral communicable diseases; R04.2 Hemoptysis; Z87.891 Personal history of nicotine dependence
CPT/HCPCS: 36415; 80048; 81240; 81241; 83880; 84484; 85025; 85027; 85300; 85597; 85610; 85613; 85730; 87635; 93005; 99285; J1170